=== PATIENT | male | born 1995 | race Two or more races ===

== ENCOUNTER 2019-06-18 14:00 | Emergency (ER) | payer SELFPAY ==
[~2019-06-18] VITALS: Ht 182.9 cm; Wt 65.8 kg
[2019-06-18] MEDS ORDERED: AMLODIPINE BESY10 MG ORAL (14:18)
--- NOTE | 2019-06-18 14:43 | NUR ---
ED Nurse Note: Patient came to ED c/o left-sided 10/10 sciatica pain after taking the trash out. Patient AxO x 4, no s/s of acute distress.
[2019-06-18 14:44] VITALS: BP 132/62
--- NOTE | 2019-06-18 14:46 | NUR ---
ED Nurse Note: Dr. Arce at bedside
--- NOTE | 2019-06-18 14:55 | Emergency Room Report ---
History of Present Illness General Chief Complaint: Pain Source: Patient Present Illness HPI Disclaimer: Please note that this report is being documented using DRAGON technology. This can lead to erroneous entry secondary to incorrect interpretation by the dictating instrument. HPI: 23-year-old male presents for evaluation of back pain. He was taking the garbage at work which became stuck in the bottom of the base and and strained hard to remove this heavy bag. He noted immediate pain over the left side of his back rating down the dorsal aspect of his leg and to his heel. Pain starts in the buttocks and radiates down the entire leg. Denies any numbness or tingling. Denies any weakness in the leg, urinary retention, fecal incontinence. There was no fall or trauma reported. He has no history of back injury or back surgery. Has difficulty standing upright. PMH: Hypertension PSH: Denies Allergies: Denies Social Hx: Denies Allergies: Coded Allergies: No Known Allergies (Unverified , 06/18/19) Nursing Documentation-PMH Hx Hypertension: Yes - sciatica Review of Systems All Other Systems: negative except mentioned in HPI Physical Exam Vital Signs Date Time Temp Pulse Resp B/P (MAP) Pulse Ox O2 Delivery O2 Flow Rate FiO2 06/18/19 14:15 97.3 90 17 132/62 (85) 98 Room Air General: Awake and alert, moderately uncomfortable, sitting upright in a wheelchair HEENT: NC/AT. EOMI. Resp: Normal work of breathing Skin: Intact. No abrasions, laceration or rash over the exposed skin MSK: Normal tone and bulk. Moving all extremities. No obvious deformity. Strength is full at the hips, knees and ankle though limitation to range of motion secondary to pain in the back Neuro: Awake and alert. Mentating appropriately. Sensation intact over the dermatomes of lower extremities bilaterally. Back: No tenderness to palpation or step-off appreciated in the cervical, thoracic or lumbosacral spine. There is moderate paraspinal tenderness on the left extending over the piriformis and gluteus. Medical Decision Making Diagnostic Impression: Primary Impression: Back pain with radiculopathy ER Course This is a 23-year-old male presenting for evaluation of sudden onset back pain without trauma after lifting a heavy garbage bag earlier today while at work. Pain is radiating down his left leg. This is consistent with either a herniated disc, sciatica or severe spasm. No indication for imaging at this time as there is no trauma reported. He appears uncomfortable and will treat symptomatically with NSAIDs, steroids, Valium and apply lidocaine patch for spasticity. Once improved he may be discharged with outpatient follow-up. Discussed activity modifications and need to follow-up with his PMD. He understands and agrees with this treatment plan. Reevaluation Time: 16:11 Last Vital Signs Date Time Temp Pulse Resp B/P (MAP) Pulse Ox O2 Delivery O2 Flow Rate FiO2 06/18/19 14:44 97.3 83 17 132/62 98 Room Air Reevaluation Impression Initial treatments felt short of full relief. The patient was given 1 dose of intramuscular morphine with improvement in his symptoms. He is now ambulating and standing upright. Continues to improve. Will discharge home with symptomatic medications. Follow-up with PMD. Discussed reasons to return to the emergency department. He understands and agrees with this treatment plan. Disposition: HOME, SELF-CARE Condition: Improved Scripts Prednisone* (PREDNISONE*) 50 Mg Tablet 50 MG ORAL DAILY, #10 TAB 0 Refills Prov: Eric Arce MD 06/18/19 Cyclobenzaprine Hcl* (FLEXERIL*) 10 Mg Tablet 10 MG ORAL TID PRN for Muscle Spasm, #30 TAB Prov: Eric Arce MD 06/18/19 Naproxen* (NAPROXEN*) 500 Mg Tablet 500 MG ORAL TWICE A WEEK, #60 TAB 0 Refills Prov: Eric Arce MD 06/18/19 Eric Arce MD Jun 18, 2019 14:55
[2019-06-18] MEDS ORDERED: Ketorolac 30mg Inj IM ONE (15:00)
[2019-06-18] MEDS ORDERED: PREDNISONE50 MG ORAL (15:04)
[2019-06-18] MEDS ORDERED: NAPROXEN500 M2 ORAL (15:04)
[2019-06-18] MEDS ORDERED: CYCLOBENZAPRINE10 MG ORAL (15:04)
[2019-06-18 15:08] VITALS: BP 132/62
--- NOTE | 2019-06-18 15:08 | NUR ---
ED Nurse Note: Patient cleared for DC by Dr. Arce. Patient AxO x 4, no s/s of acute distress. ID band removed. Patient walks with steady gait, took all belongings.
[2019-06-18] MEDS ORDERED: Morphine Sulfate 2mg/ml Inj(IV/IM USE ONLY) IM ONE (15:30)
== END 2019-06-18 15:08 | disposition home or self-care (01) ==
LOC: EMR 15:00
DX: M54.9 Dorsalgia, unspecified (principal); M54.10 Radiculopathy, site unspecified; I10 Essential (primary) hypertension
CPT/HCPCS: 96372; 99283; J1885; J2270; J7512